=== PATIENT | male | born 1955 | race Caucasian/White ===

== ENCOUNTER → 2020-08-27 | Outpatient (CLI) | payer OTHER ==
[~2020-08-27] MED LIST: CYCL10 PO; Naprosyn500 MG PO
== END | disposition home or self-care (01) ==
LOC: LAB 07:50 → LAB SHORT 07:50
DX: C44.519 Basal cell carcinoma of skin of other part of trunk (principal); D22.5 Melanocytic nevi of trunk
CPT/HCPCS: 88305; 88342

== ENCOUNTER → 2020-09-23 | Outpatient (CLI) | payer OTHER | END | disposition home or self-care (01) | LOC: LAB 08:20 → LAB SHORT 08:20 | DX: D22.5 Melanocytic nevi of trunk (principal) | CPT/HCPCS: 88305 ==

== ENCOUNTER 2024-02-17 04:09 | Day surgery (SDC) | payer MEDICARE ==
[2024-02-17] MEDS ORDERED: Lidocaine HCl 4% Cream 5 GM ONE (08:12)
== END 2024-02-17 23:00 | disposition home or self-care (01) ==
LOC: WOUND 04:09
DX: S81.802A Unspecified open wound, left lower leg, initial encounter (principal); I10 Essential (primary) hypertension; G47.30 Sleep apnea, unspecified; Z99.89 Dependence on other enabling machines and devices; Z87.891 Personal history of nicotine dependence; X58.XXXA Exposure to other specified factors, initial encounter
CPT/HCPCS: A6213; A9270; G0463

== ENCOUNTER 2024-02-23 00:52 | Day surgery (SDC) | payer MEDICARE ==
[2024-02-23] MEDS ORDERED: Lidocaine HCl 4% Cream 5 GM ONE (07:54)
== END 2024-02-23 22:54 | disposition home or self-care (01) ==
LOC: WOUND 00:52
DX: L97.222 Non-pressure chronic ulcer of left calf with fat layer exposed (principal); I10 Essential (primary) hypertension; I87.2 Venous insufficiency (chronic) (peripheral)
CPT/HCPCS: A6213; A9270

== ENCOUNTER 2024-03-01 02:18 | Day surgery (SDC) | payer MEDICARE ==
[2024-03-01] MEDS ORDERED: Lidocaine HCl 4% Cream 5 GM ONE (08:34)
== END 2024-03-01 23:00 | disposition home or self-care (01) ==
LOC: WOUND 02:18
DX: L97.222 Non-pressure chronic ulcer of left calf with fat layer exposed (principal); I10 Essential (primary) hypertension; I87.2 Venous insufficiency (chronic) (peripheral)
CPT/HCPCS: A6213; A9270

== ENCOUNTER 2024-03-08 03:45 | Day surgery (SDC) | payer MEDICARE | END 2024-03-08 23:00 | disposition home or self-care (01) | LOC: WOUND 03:45 | DX: S81.802D Unspecified open wound, left lower leg, subsequent encounter (principal); I10 Essential (primary) hypertension; I87.2 Venous insufficiency (chronic) (peripheral) | CPT/HCPCS: A6213; G0463 ==

== ENCOUNTER 2024-03-15 05:21 | Day surgery (SDC) | payer MEDICARE | END 2024-03-15 23:00 | disposition home or self-care (01) | LOC: WOUND 05:21 | DX: L98.8 Other specified disorders of the skin and subcutaneous tissue (principal); I10 Essential (primary) hypertension; I87.2 Venous insufficiency (chronic) (peripheral) | CPT/HCPCS: A6213; G0463 ==

== ENCOUNTER 2024-03-28 01:16 | Day surgery (SDC) | payer MEDICARE | END 2024-03-28 23:00 | disposition home or self-care (01) | LOC: WOUND 01:16 | DX: S81.802D Unspecified open wound, left lower leg, subsequent encounter (principal); I10 Essential (primary) hypertension; I87.2 Venous insufficiency (chronic) (peripheral) | CPT/HCPCS: G0463 ==

== ENCOUNTER 2025-03-06 09:16 | Day surgery (SDC) | payer MEDICARE ==
[2025-03-06] VITALS (12 sets, daily range): BP systolic 88–161; BP diastolic 56–88
[~2025-03-06] VITALS: Ht 175.3 cm; Wt 114.4 kg
[~2025-03-06 09:16] MED LIST changes: +ATEN50 PO; +Amlodipine Bes2.5 MG PO; +CALCIUM CIT 311 EAC7 PO; +DULO30 PO; +HYDCHL25 PO; +IMMODIUM AD PO; +LISI20 PO; +MELO7.5 PO; +MULVITA PO; +VITAMIN K PO
[2025-03-06] MEDS ORDERED: Ropivacaine 0.5% HCl/Pf 123.125 MG,EPINEPHrine HCL 0.25 MG,Ketorolac Tromethamine 15 MG... INFIL SCH (10:05)
[2025-03-06] MEDS ORDERED: Tranexamic Acid 100 ML IV SCH (10:05)
[2025-03-06] MEDS ORDERED: Chlorhexidine Mouth Care 15 ML UDC MT SCH (10:05)
[2025-03-06] MEDS ORDERED: CeFAZolin Sodium 2,000 MG in NS 100 ML IV SCH ×2 (10:05→21:00)
[2025-03-06] MEDS ORDERED: Metoclopramide HCl 5MG / ML 2ML Vial IV PRN ×2 (10:45→11:10)
[2025-03-06] MEDS ORDERED: Ondansetron HCl 2 MG / ML 2ML Vial IV PRN ×2 (10:45→11:10)
[2025-03-06] MEDS ORDERED: Magnesium Hydroxide Conc 10 ML UDC PO PRN (10:45)
[2025-03-06] MEDS ORDERED: HYDROmorphone HCl/Pf 1MG SYR IV PRN ×2 (10:50→11:10)
[2025-03-06] MEDS ORDERED: Midazolam HCl 1MG / ML 2ML Vial ONE ×2 (11:06→13:07)
[2025-03-06] MEDS ORDERED: FentaNYL Citrate 50 MCG/ML 2 ML Injection ONE (11:06)
[2025-03-06] MEDS ORDERED: Metoclopramide HCl 5MG / ML 2ML Vial ONE ×2 (11:06→12:42)
[2025-03-06] MEDS ORDERED: Ondansetron HCl 2 MG / ML 2ML Vial ONE ×2 (11:06→12:42)
[2025-03-06] MEDS ORDERED: Morphine Sulfate 4 MG/1 ML Injection IV PRN (11:10)
[2025-03-06] MEDS ORDERED: FentaNYL Citrate 50 MCG/ML 2 ML Injection IV PRN ×2 (11:10→11:15)
[2025-03-06] MEDS ORDERED: ePHEDrine Sulfate 50 MG/ML 1ML Injection IV PRN (11:10)
[2025-03-06] MEDS ORDERED: FLU VACC TS2025(65UP)/MF59C/PF 45 MCG/0.5 ML SYRINGE IM SCH (11:40)
[2025-03-06] MEDS ORDERED: Magnesium Sulfate 500 MG / ML 2ML Vial ONE (12:33)
[2025-03-06] MEDS ORDERED: Phenylephrine HCl 100 MCG/ML-NS 10MLSYR (1MG/10ML) ONE (13:40)
--- NOTE | 2025-03-06 15:40 | NUR ---
PT ARRIVED FROM PACU AT 1515 VIA [facility]ER[facility]. DENIES PAIN AT THIS TIME. R. KNEE WITH DERMABOND/PRINEO/TELFA/TEGADERM/JUANITA WRAP, DRESSING C/D/I. POLAR PACK IN PLACE.
--- NOTE | 2025-03-06 17:46 | NUR ---
SHIFT SUMMARY A/OX4, POST OP DAY [address] JACKSON. PT HAS DRESSING TO R.KNEE WITH PRINEO, TELFA, TEGADERM, AND JUANITA WRAP. DRESSING C/D/I. DENIES PAIN AT THIS TIME, ABLE TO BRIEFLY LIFT LE'S. DENIES NAUSEA OR SOB. PT HAS NOT YET VOIDED. VSS, NO ACUTE CHANGES AT THIS TIME.
[2025-03-06] MEDS ORDERED: Ketorolac Tromethamine 15mg Vial IV SCH (18:00)
[2025-03-06] MEDS ORDERED: ASPI81CH PO (18:48)
--- NOTE | 2025-03-06 19:37 | NUR ---
DISCHARGE/ASSUMPTION OF CARE ASSUMED CARE AT 1800, GOT PT UP TO AMBULATE & TO CHAIR. LATER UP TO VOID. EATING & DRINKING WELL. PAIN WELL CONROLLED. DISCUSSED DC INSTRUCTIONS. POLAR PACK SENT & ESCORTED OUT VIA WC.
[2025-03-07] MEDS ORDERED: DULoxetine HCL 30 MG Cap DR PO SCH (09:00)
== END 2025-03-06 19:40 | disposition home or self-care (01) ==
LOC: ORSCMMR 09:16 → ORD 11:00 → ORSCMMR 11:00 → SURS 15:09 → ORSCMMR 19:40
PROVIDERS: Orthopaedic Surgery
PROC: 0SRC0JA Replacement of Right Knee Joint with Synthetic Substitute, Uncemented, Open Approach (ICD-10-PCS; principal; 2025-03-06 11:00)
DX: M17.11 Unilateral primary osteoarthritis, right knee (principal); I10 Essential (primary) hypertension; G47.33 Obstructive sleep apnea (adult) (pediatric); F41.9 Anxiety disorder, unspecified; F32.A Depression, unspecified; E66.9 Obesity, unspecified; Z68.37 Body mass index [BMI] 37.0-37.9, adult; Z79.899 Other long term (current) drug therapy
CPT/HCPCS: 73560-RT; A9270; C1776; J0166; J0690; J0735; J1885; J2250; J2371; J2405; J2704; J2765; J2795; J3010; J3475; J7120